=== PATIENT | female | born 1995 | race Caucasian/White ===

== ENCOUNTER 2017-02-08 15:13 | Emergency (ER) | payer OTHER ==
[~2017-02-08] VITALS: Ht 165.1 cm; Wt 98.0 kg
[~2017-02-08 15:13] MED LIST: KEFLEX500 MG PO; MACROBID 100 M100 MG PO
== END 2017-02-08 15:35 | disposition home or self-care (01) ==
LOC: ED 15:13
DX: Z00.8 Encounter for other general examination (principal)

== ENCOUNTER 2017-05-16 10:37 | Observation (INO) | payer OTHER ==
--- OUTSIDE RECORDS SUMMARY | ~2017-05-16 | XMS ---
Demographics + + + | Address | [address] | | | [place] [address] | + + + | Preferred Language | Unknown | + + + | Marital Status | Unknown | + + + | Mormonism Affiliation | Unknown | + + + | Race | Unknown | + + + | Ethnic Group | Unknown | + + + Author + + + | Author | [facility] | + + + | Organization | [facility] | + + + | Address | [address] | | | [place] [address] | + + + | Phone | Unavailable | + + + Care Team Providers + + + + | Care Unit Technician Name | Role | Phone | + + + + Unavailable | Unavailable | + + + + PROBLEMS +---------+ + + +--------+ + + | Type | Condition | ICD9-CM | [id number] | Onset | Condition | SNOMED | | | | Code | Code | Dates | Status | Code | +---------+ + + +--------+ + + | Problem | ANXIETY | 293.84 | | | Active | [id number] | | | DISORDER | | | | | | | | OTH DIS | | | | | | +---------+ + + +--------+ + + | Problem | Lice (of | 132.0 | | | Active | [id number] | | | head) | | | | | | | | infestatio | | | | | | | | n | | | | | | +---------+ + + +--------+ + + ALLERGIES Unknown Allergies SOCIAL HISTORY No smoking Hx information available PLAN OF CARE VITAL SIGNS MEDICATIONS Unknown Medications RESULTS No Results PROCEDURES No Known procedures IMMUNIZATIONS No Known Immunizations"
--- OUTSIDE RECORDS SUMMARY | ~2017-05-16 | XMS ---
Demographics + + + | Address | [address] | | | [place] [address] | + + + | Preferred Language | Unknown | + + + | Marital Status | Unknown | + + + | Lutheran Affiliation | Unknown | + + + | Race | Unknown | + + + | Ethnic Group | Unknown | + + + Author + + + | Author | [facility] | + + + | Organization | [facility] | + + + | Address | [address] | | | [place] [address] | + + + | Phone | | + + + Care Team Providers + + + + | Care Military Analyst Name | Role | Phone | + + + + Unavailable | Unavailable | + + + + PROBLEMS +---------+ + + +--------+ + + | Type | Condition | ICD9-CM | [id number] | Onset | Condition | SNOMED | | | | Code | Code | Dates | Status | Code | +---------+ + + +--------+ + + | Problem | ANXIETY | 293.84 | | | Active | [id number] | | | DISORDER | | | | | | | | OTH DIS | | | | | | +---------+ + + +--------+ + + | Problem | Lice (of | 132.0 | | | Active | [id number] | | | head) | | | | | | | | infestatio | | | | | | | | n | | | | | | +---------+ + + +--------+ + + ALLERGIES + + + + +---------+ | Substance | Reaction | Event Type | Date | Status | + + + + +---------+ | N.K.D.A. | Unknown | Non Drug | Jan, | Unknown | | | | Allergy | | | + + + + +---------+ SOCIAL HISTORY No smoking Hx information available PLAN OF CARE + +---------+ | Activity | Details | + +---------+ +---+ | | +---+ + + + | Follow Up | 1 Week Reason:null | + + + VITAL SIGNS + + + + | Height | 63.75 in | 2017-02-27 | + + + + | Weight | 245.6 lbs | 2017-02-27 | + + + + | BMI | 42.48 kg/m2 | 2017-02-27 | + + + + | Temperature | 98.5 degrees Fahrenheit | 2017-02-27 | + + + + | Heart Rate | 105 /min | 2017-02-27 | + + + + | Blood pressure systolic | 149 mm Hg | 2017-02-27 | + + + + | Blood pressure diastolic | 93 mm Hg | 2017-02-27 | + + + + MEDICATIONS + + + + +--------+ + +--------+ | Medicati | Instruct | Dosage | Frequenc | Start | End Date | Duration | Status | | on | ions | | y | Date | | | | + + + + +--------+ + +--------+ | Tylenol | Orally | 2 | 6h | | | | Active | | 325 MG | every 6 | tablets | | | | | | | | hrs | as | | | | | | | | | needed | | | | | | + + + + +--------+ + +--------+ RESULTS No Results PROCEDURES + + + + + | Procedure | Date Ordered | Related Diagnosis | Body Site | + + + + + | Est Level II | February 27, 2017 | | | | Limited | | | | + + + + + IMMUNIZATIONS No Known Immunizations"
--- OUTSIDE RECORDS SUMMARY | ~2017-05-16 | XMS ---
Demographics + + + | Address | [address] | | | [place] [address] | + + + | Preferred Language | Unknown | + + + | Marital Status | Unknown | + + + | Jainism Affiliation | Unknown | + + + | Race | Unknown | + + + | Ethnic Group | Unknown | + + + Author + + + | Author | [facility] | + + + | Organization | [facility] | + + + | Address | [address] | | | [place] [address] | + + + | Phone | | + + + Care Team Providers + + + + | Care Milking Machine Mechanic Name | Role | Phone | + + + + Unavailable | Unavailable | + + + + PROBLEMS +---------+ + + +--------+ + + | Type | Condition | ICD9-CM | [id number] | Onset | Condition | SNOMED | | | | Code | Code | Dates | Status | Code | +---------+ + + +--------+ + + | Problem | ANXIETY | 293.84 | | | Active | [id number] | | | DISORDER | | | | | | | | OTH DIS | | | | | | +---------+ + + +--------+ + + | Problem | Lice (of | 132.0 | | | Active | [id number] | | | head) | | | [...] N.K.D.A. | Unknown | Non Drug | Feb, | Unknown | | | | Allergy | | | + + + + +---------+ SOCIAL HISTORY No smoking Hx information available PLAN OF CARE + +---------+ | Activity | Details | + +---------+ +---+ | | +---+ + + + | Follow Up | prn Reason:null | + + + VITAL SIGNS + + + + | Height | 63.75 in | 2017-03-09 | + + + + | Weight | 244.9 lbs | 2017-03-09 | + + + + | BMI | 42.36 kg/m2 | 2017-03-09 | + + + + | Temperature | 97.8 degrees Fahrenheit | 2017-03-09 | + + + + | Heart Rate | 104 /min | 2017-03-09 | + + + + | Blood pressure systolic | 147 mm Hg | 2017-03-09 | + + + + | Blood pressure diastolic | 92 mm Hg | 2017-03-09 | + + + + MEDICATIONS No Known Medications RESULTS No Results PROCEDURES + + + + + | Procedure | Date Ordered | Related Diagnosis | Body Site | + + + + + | Est Level II | Mar 09, 2017 | | | | Limited | | | | + + + + + IMMUNIZATIONS No Known Immunizations"
== END 2017-05-16 15:40 | disposition home or self-care (01) ==
LOC: FBC 10:37
PROVIDERS: ADMIT Obstetrics & Gynecology
DX: O13.3 Gestational [pregnancy-induced] hypertension without significant proteinuria, third trimester (principal); Z3A.37 37 weeks gestation of pregnancy
CPT/HCPCS: 36415; 76818; 82565; 82570; 84156; 84450; 84520; 84550; 85025; G0378

== ENCOUNTER 2017-05-17 08:24 | Inpatient (IN) | payer OTHER ==
[~2017-05-17] VITALS: Ht 167.6 cm; Wt 115.0 kg
--- NOTE | 2017-05-19 10:07 | PR ---
[facility] [address] [place], [place] [address] Signed PP Progress Notes Datetime Report Generated by CPN: 05/19/2017 10:07 SUBJECTIVE: [id number] Pain: Within normal limits Nausea/Vomiting: Denies Flatus: Yes Vital Signs: [id number] Vital Signs: Reviewed EXAM: [id number] Cardiovascular: Normal Respiratory: Normal Abdomen/Uterus: Normal Lochia: Normal Vulva/Perineum: Normal Breasts: Normal CVA Tenderness: Normal Extremities: Normal Incision: Not Applicable Progress: Not Applicable IMPRESSION/PLAN/PROCEDURES: [id number] Impression: Normal progression Plan: Discharge Procedures: None Progress Notes: patient doing well. wanting to go home today Signing Physician: Alma Delia Espinoza MD CC: *Electronically Signed* 05/19/17 1007 ALMA DELIA ESPINOZA MD PATIENT NAME: TITI REEDER PROGRESS NOTE DATE OF : 97 PHYSICIAN: ALMA DELIA ESPINOZA MD RPT #: [id number] REPORT IS CONFIDENTIAL AND NOT TO BE RELEASED WITHOUT AUTHORIZATION
== END 2017-05-19 17:12 | disposition home or self-care (01) | DRG 774 ==
LOC: FBC 05-18 00:09
PROVIDERS: ADMIT Obstetrics & Gynecology
PROC: 10E0XZZ Delivery of Products of Conception, External Approach (ICD-10-PCS; principal; 2017-05-18)
PROC: 0KQM0ZZ Repair Perineum Muscle, Open Approach (ICD-10-PCS; 2017-05-18)
PROC: 3E0S3BZ Introduction of Anesthetic Agent into Epidural Space, Percutaneous Approach (ICD-10-PCS; 2017-05-18)
PROC: 00HU33Z Insertion of Infusion Device into Spinal Canal, Percutaneous Approach (ICD-10-PCS; 2017-05-18)
DX: O13.4 Gestational [pregnancy-induced] hypertension without significant proteinuria, complicating childbirth (principal); O15.1 Eclampsia complicating labor; Z3A.38 38 weeks gestation of pregnancy; Z37.0 Single live birth; O40.3XX0 Polyhydramnios, third trimester, not applicable or unspecified; O70.1 Second degree perineal laceration during delivery
CPT/HCPCS: 01960; 36415; 85027; J2590; J7120

== ENCOUNTER 2017-12-08 20:14 | Emergency (ER) | payer OTHER ==
[~2017-12-08] VITALS: Ht 167.6 cm; Wt 114.8 kg
[2017-12-08] MEDS ORDERED: NORCO 5-325 TA1 EACH PO (23:02)
[2017-12-08] MEDS ORDERED: ZOFRAN ODT4 MG PO (23:02)
== END 2017-12-08 23:24 | disposition home or self-care (01) ==
LOC: ED 20:14
DX: O99.89 Other specified diseases and conditions complicating pregnancy, childbirth and the puerperium (principal); R10.11 Right upper quadrant pain; R10.12 Left upper quadrant pain; R10.32 Left lower quadrant pain; O99.331 Smoking (tobacco) complicating pregnancy, first trimester; F17.200 Nicotine dependence, unspecified, uncomplicated; Z3A.01 Less than 8 weeks gestation of pregnancy
CPT/HCPCS: 76705; 76801; 76817; 80053; 81001; 83690; 84702; 84703; 85025; 85610; 85730; 96361; 96374; 96375; 99284; J1170; J2405; J7030

== ENCOUNTER 2018-03-16 03:53 | Emergency (ER) | payer OTHER ==
[~2018-03-16] VITALS: Ht 167.6 cm; Wt 114.8 kg
--- OUTSIDE RECORDS SUMMARY | ~2018-03-16 | XMS | Clinical Summary ---
Demographics + + + | Address | [address] | | | [place] [address] | + + + | Home Phone | | + + + | Preferred Language | Unknown | + + + | Marital Status | Single | + + + | Tenriism Affiliation | Unknown | + + + | Race | Unknown | + + + | Ethnic Group | Unknown | + + + Author + + + | Author | [facility] | | | and [place] | + + + | Organization | [facility] | | [...] Team Providers + +------+ + | Care Pulmonary Fellow Name | Role | Phone | + +------+ + | No, Physician | PP | Unavailable | + +------+ + Allergies No Known Allergies Current Medications No known medications Active Problems No known active problems Social History + +-------+ +--------+------+ | Tobacco Use | Types | Packs/Day | Years | Date | | | | | Used | | + +-------+ +--------+------+ | Never Assessed | | | | | + +-------+ +--------+------+ + + + + | Currently | Estimated Date of Delivery | Comments | + + + + | Yes | | | + + + + + + + | Sex Assigned at | Date Recorded | | | | + + + | Not on file | | + + + Last Filed Vital Signs + + + + | Vital Sign | Reading | Time Taken | + + + + | Blood Pressure | 124/73 | 12/11/2017 1236 PDT | + + + + | Pulse | 86 | 12/11/2017 1236 PDT | + + + + | Temperature | 37.4 C (99.3 F) | 12/11/20171137 PDT | + + + + | Respiratory Rate | 12 | 12/11/20171235 PDT | + + + + | Oxygen Saturation | 96% | 12/11/20171235 PDT | + + + + | Inhaled Oxygen | - | - | | Concentration | | | + + + + | Weight | 81.6 kg (180 lb) | 12/11/20171137 PDT | + + + + | Height | 162.6 cm (5' 4") | 12/11/20171137 PDT | + + + + | Body Mass Index | 30.9 | 12/11/2017 1138 PDT | + + + + Plan [...] Vaccine: Influenza | | | | | (#1) | 8 | | | + + + + + Results Not on filefrom Last 3 Months Insurance + +--------+ +--------+ +---------+ | Payer | Benefi | Subscriber | Type | Phone | Address | | | t Plan | ID | | | | | | / | | | | | | | Group | | | | | + +--------+ +--------+ +---------+ | [facility] | PHP | [id number] | PPO | [phone] | | PLAN | [place]BB | | | [phone] | | | | [place]W | | | | | | | [place] | | | | | + +--------+ +--------+ +---------+ | [employer] | MODA | [id number] | Medica | [phone] | | MEDICAID HMO | HEALTH | | id | [id number] | | | | MDCD | | | | | | | HMO [place] | | | | | + +--------+ +--------+ +---------+ + +--------+ +--------+ + + | Guarantor Name | Accoun | Relation to | Date | Phone | Billing Address | | | t Type | Patient | of | | | | | | | | | | + +--------+ +--------+ + + | TITI HINES | Person | Self [birth year] Home: | [address] | | | al/Fam | | 1994 | [phone] [place] [address] | | | tobi | | | [phone] | | + +--------+ +--------+ + +
[~2018-03-16 03:53] MED LIST changes: +NORCO 5-325 TA1 EACH PO; +ZOFRAN ODT4 MG PO
== END 2018-03-16 05:45 | disposition home or self-care (01) ==
LOC: ED 03:53
DX: O99.89 Other specified diseases and conditions complicating pregnancy, childbirth and the puerperium (principal); R10.10 Upper abdominal pain, unspecified; F17.200 Nicotine dependence, unspecified, uncomplicated; Z3A.20 20 weeks gestation of pregnancy
CPT/HCPCS: 80053; 81001; 84703; 85025; 96374; 96375; 99284; J2270; J2405

== ENCOUNTER 2018-08-06 14:38 | Inpatient (IN) | payer OTHER ==
[~2018-08-06] VITALS: Ht 162.6 cm; Wt 110.0 kg
--- NOTE | 2018-08-07 01:25 | PR ---
[facility] [address] [place], [place] [address] Signed Progress Notes IP Datetime Report Generated by CPN: 08/07/2018 01:25 PROGRESS NOTES: [id number] Impression: Normal progression of labor Procedures: Artificial ROM; Scalp Electrode Plan: Continue present management; Anticipate Vaginal Delivery VITAL SIGNS: [id number] Vital Signs: Reviewed; Within Normal Limits EXAM: [id number] Dilatation: 4.0 Effacement: 70 Station: -3 Uterine Contractions: every 2-3 minutes MEMBRANES: [id number] Membrane Status: Ruptured Amniotic Fluid Color: Clear ROM Note: AROM without difficulty; head applied to cervix, FEKG applied Comments: Comfortable with Epidural, will continue monitoring Fetus A: [id number] FHR Baseline: 120 Variability: Moderate 6-25bpm Accelerations: 15X15 Presentation: Vertex Fetus B: [id number] Signing Physician: Yari Olguin MD Copies: ~ *Electronically Signed* 08/07/18 0125 YARI OLGUIN MD PATIENT NAME: TITI REEDER PROGRESS NOTE DATE OF : 97 PHYSICIAN: YARI OLGUIN MD RPT #: [id number] REPORT IS CONFIDENTIAL AND NOT TO BE RELEASED WITHOUT AUTHORIZATION
--- NOTE | 2018-08-07 12:58 | PR ---
[facility] [address] [place], [place] [address] Signed PP Progress Notes Datetime Report Generated by CPN: 08/07/2018 12:58 SUBJECTIVE: [id number] Pain: Within normal limits Nausea/Vomiting: Denies Vital Signs: [id number] Vital Signs: Reviewed; Within Normal Limits EXAM: [id number] Abdomen/Uterus: Normal Lochia: Normal Extremities: Normal IMPRESSION/PLAN/PROCEDURES: [id number] Impression: Normal progression Plan: Continue present management Procedures: None Progress Notes: Doing well, without complaint. Continue Pitocin augmentation. Signing Physician: Yari Olguin MD Copies: ~ *Electronically Signed* 08/07/18 1258 YARI OLGUIN MD PATIENT NAME: TITI REEDER PROGRESS NOTE DATE OF : 97 PHYSICIAN: YARI OLGUIN MD RPT #: [id number] REPORT IS CONFIDENTIAL AND NOT TO BE RELEASED WITHOUT AUTHORIZATION
--- NOTE | 2018-08-08 12:09 | PR ---
[facility] [address] [facility] [facility] [address] [place] [address] Signed PP Progress Notes Datetime Report Generated by CPN: 08/08/2018 12:09 SUBJECTIVE: [id number] Pain: Within normal limits Nausea/Vomiting: Denies Vital Signs: [id number] Vital Signs: Reviewed; Within Normal Limits Notable Details: PP Hgb/Hct = 10.4/32.5 EXAM: [id number] Abdomen/Uterus: Normal Lochia: Normal Extremities: Normal IMPRESSION/PLAN/PROCEDURES: [id number] Impression: Normal progression Plan: Discharge Procedures: None Progress Notes: Doing well, without complaitn, wants to go home. Signing Physician: Yari Olguin MD Copies: ~ *Electronically Signed* 08/08/18 1209 YARI OLGUIN MD PATIENT NAME: TITI REEDER PROGRESS NOTE DATE OF : 97 PHYSICIAN: YARI OLGUIN MD RPT #: [id number] REPORT IS CONFIDENTIAL AND NOT TO BE RELEASED WITHOUT AUTHORIZATION
== END 2018-08-08 13:35 | disposition home or self-care (01) | DRG 807 ==
LOC: FBC
PROVIDERS: ADMIT General Practice
PROC: 3E0S3BZ Introduction of Anesthetic Agent into Epidural Space, Percutaneous Approach (ICD-10-PCS; 2018-08-06)
PROC: 00HU33Z Insertion of Infusion Device into Spinal Canal, Percutaneous Approach (ICD-10-PCS; 2018-08-06)
PROC: 10E0XZZ Delivery of Products of Conception, External Approach (ICD-10-PCS; principal; 2018-08-07)
PROC: 0HQ9XZZ Repair Perineum Skin, External Approach (ICD-10-PCS; 2018-08-07)
PROC: 10907ZC Drainage of Amniotic Fluid, Therapeutic from Products of Conception, Via Natural or Artificial Opening (ICD-10-PCS; 2018-08-07)
DX: O66.0 Obstructed labor due to shoulder dystocia (principal); Z37.0 Single live birth; O69.1XX0 Labor and delivery complicated by cord around neck, with compression, not applicable or unspecified; O70.0 First degree perineal laceration during delivery; Z3A.40 40 weeks gestation of pregnancy
CPT/HCPCS: 01960; 36415; 82565; 82570; 84156; 84450; 84520; 84550; 85025; 85027; J2590; J2795; J7120

== ENCOUNTER 2018-11-10 15:27 | Emergency (ER) | payer OTHER ==
[~2018-11-10] VITALS: Ht 162.6 cm; Wt 110.4 kg
--- OUTSIDE RECORDS SUMMARY | ~2018-11-10 | XMS | Clinical Summary ---
Demographics + + + | Address | [address] | | | [place] [address] | + + + | Home Phone | | + + + | Preferred Language | Unknown | + + + | Marital Status | Single | + + + | Alevism Affiliation | Unknown | + + + | Race | Unknown | + + + | Ethnic Group | Unknown | + + + Author + + + | Author | [facility] | | | and [place] | + + + | Organization | [facility] | | | and [place] [...] Team Providers + +------+ + | Care Pharmacist In Charge Owner Name | Role | Phone | + [...] +---------+--------+ | [facility] | PHP | [phone] | 07/31/19 | [phone] | | PPO | | PLAN | PEBB | | 18-Pre | 5 | | | | | STATEW | | sent | | | | | | [place]EDEE | | | | | | + +--------+ +--------+ +---------+--------+ | [employer] | MODA | [id number] | | [phone] | | Medica | | MEDICAID HMO [...] | 1995 | [phone] | [place] [address] | | | tobi | | | 8 (Home) | | + +--------+ +--------+ + + Advance Directives Patient has advance care planning documents on file. For more information, please contact:[facility] [place] [address]
--- OUTSIDE RECORDS SUMMARY | ~2018-11-10 | XMS | Clinical Summary ---
Demographics + + + | Address | [address] | | | [place] [address] | + + + | Home Phone | | + + + | Preferred Language | Unknown | + + + | Marital Status | Single | + + + | Nondenominational Affiliation | Unknown | + + + | Race | Unknown | + + + | Ethnic Group | Unknown | + + + Author + + + | Author | [facility] | | | and [place] | + + + | Organization | [facility] | | | and [place] [...] Team Providers + +------+ + | Care Laborer Laboratory Name | Role | Phone | + [...] +---------+--------+ | [facility] | PHP | [phone] | 07/31/19 | [phone] | | PPO | | PLAN | PEBB | | 18-Pre | 5 | | | | | STATEW | | sent | | | | | | DEEDEE | | | | | | + +--------+ +--------+ +---------+--------+ | [employer] | MODA | [id number] | | [phone] | | Medica | | MEDICAID HMO [...] | 1995 | [phone] | [place] [address] | | | tobi | | | 8 (Home) | | + +--------+ +--------+ + + Advance Directives Patient has advance care planning documents on file. For more information, please contact:[facility] and [place] [address]
[2018-11-10] MEDS ORDERED: ZOFRAN4 MG PO (17:42)
[2018-11-10] MEDS ORDERED: NORCO 5-325 TA1 EACH PO (17:42)
== END 2018-11-10 18:05 | disposition home or self-care (01) ==
LOC: ED 15:27
DX: K85.90 Acute pancreatitis without necrosis or infection, unspecified (principal); F17.200 Nicotine dependence, unspecified, uncomplicated
CPT/HCPCS: 76705; 80053; 81001; 83690; 84703; 85025; 96361; 99284-25; J1885; J2405; J7030

== ENCOUNTER 2018-12-01 21:28 | Observation (INO) | payer OTHER ==
[~2018-12-01] VITALS: Ht 162.6 cm; Wt 109.3 kg
--- OUTSIDE RECORDS SUMMARY | ~2018-12-01 | XMS | Clinical Summary ---
Demographics + + + | Address | [address] | | | [place] [address] | + + + | Home Phone | | + + + | Preferred Language | Unknown | + + + | Marital Status | Single | + + + | Denominational Affiliation | Unknown | + + + | Race | Unknown | + + + | Ethnic Group | Unknown | + + + Author + + + | Author | [facility] | | | and [place] | + + + | Organization | [facility] | | | and [place] | + + + | Address | Unknown | + + + | Phone | Unavailable | + + + Support + + +---------+ + | Name | Relationship | Address | Phone | + + +---------+ + | None,Per Pt | ECON | Unknown | | + + +---------+ + Care Team Providers + +------+ + | Care Serology Teacher Name | Role | Phone | + +------+ + | No, Physician | PP | Unavailable | + +------+ + Allergies No Known Allergies Medications No known medications Active Problems + + + | | Comments | + + + | Yes | | + + + No known active problems Social History + +-------+ +--------+------+ | Tobacco Use | Types | Packs/Day | Years | Date | | | | | Used | | + +-------+ +--------+------+ | Never Assessed | | | | | + +-------+ +--------+------+ + + + | | Comments | + + + | Yes | | + + + + + + | Sex Assigned at [...] recent travel history available. | + + Last Filed Vital Signs + + + + | Vital Sign | Reading | Time Taken | + + + + | Blood Pressure | 124/73 | 12/11/20176 PDT | + + + + | Pulse | 86 | 12/11/20171235 PDT | + + + + | Temperature | 37.4 C (99.3 F) | 12/11/20178 PDT | + + + + | Respiratory Rate | 12 | 12/11/20171235 PDT | + + + + | Oxygen Saturation | 96% | 12/11/2017 1236 PDT | + + + + | Inhaled Oxygen | - | - | | Concentration | | | + + + + | Weight | 81.6 kg (180 lb) | 12/11/20171137 PDT | + + + + | Height | 162.6 cm (5' 4") | 12/11/20171137 PDT | + + + + | Body Mass Index | 30.9 | 12/11/20171137 PDT | + + + + Plan of Treatment + + + + + | Health Maintenance | Due Date | Last Done | Comments | + + + + + | Well Child Check | | | | | | 0 | | | + + + + + | Vaccine: | | | | | Dtap/Tdap/Td (1 - | 6 | | | | Tdap) | | | | + + + + + | Cervical Cancer | | | | | Screening (Pap) | 8 | | | + + + + + | Vaccine: Influenza | | | | | (Season Ended) | 9 | | | + + + + + Results Not on filefrom Last 3 Months Insurance + +--------+ +--------+ +---------+--------+ | Payer | Benefi | Subscriber | Effect | Phone | Address | Type | | | t Plan | ID | lalita | | | | | | / | | Dates | | | | | | Group | | | | | | + +--------+ +--------+ +---------+--------+ | [facility] | PHP | [id number] | 07/31/19 | [phone] | | PPO | | PLAN | [place]BB | | 18-Pre | 5 | | | | | STATEW | | sent | | | | | | [place] | | | | | | + +--------+ +--------+ +---------+--------+ | [employer] | MODA | [id number] | | [phone] | | Medica | | MEDICAID HMO | HEALTH | | 018-Pr | 1 | | id | | | MDCD | | esent | | | | | | HMO [place] | | | | | | + +--------+ +--------+ +---------+--------+ + +--------+ +--------+ + + | Guarantor Name | Accoun | Relation to | Date | Phone | Billing Address | | | t Type | Patient | of | | | | | | | | | | + +--------+ +--------+ + + | Fritz Hines | Person | Self [birth year] | [address] | | | al/Vipul | | 1995 | [phone] | [place] [address] | | | tobi | | | 8 (Home) | | + +--------+ +--------+ + + Advance Directives Patient has advance care planning documents on file. For more information, please contact:[facility] [place] [address]
--- OUTSIDE RECORDS SUMMARY | ~2018-12-01 | XMS | Clinical Summary ---
Demographics + + + | Address | [address] | | | [place] [address] | + + + | Home Phone | | + + + | Preferred Language | Unknown | + + + | Marital Status | Single | + + + | Tenriism Affiliation | Unknown | + + + | Race | Unknown | + + + | Ethnic Group | Unknown | + + + Author + + + | Author | [facility] | | | and [place] | + + + | Organization | [facility] | | | and [place] [...] Team Providers + +------+ + | Care Senior Research Engineer Name | Role | Phone | + [...] +---------+--------+ | [facility] | PHP | [id number] | 07/31/19 | [phone] | | PPO | | PLAN | PEBB | | 18-Pre | 5 | | | | | STATEW | | sent | | | | | | DEEDEE | | | | | | + +--------+ +--------+ +---------+--------+ | [employer] | MODA | [id number] | | [phone] | | Medica | | MEDICAID HMO [...] | 1995 | [phone] | [place] [address] | | | tobi | | | 8 (Home) | | + +--------+ +--------+ + + Advance Directives Patient has advance care planning documents on file. For more information, please contact:[facility] [place] [address]
--- OUTSIDE RECORDS SUMMARY | ~2018-12-01 | XMS | Clinical Summary ---
Demographics + + + | Address | [address] | | | [place] [address] | + + + | Home Phone | | + + + | Preferred Language | Unknown | + + + | Marital Status | Single | + + + | Taoist Affiliation | Unknown | + + + | Race | Unknown | + + + | Ethnic Group | Unknown | + + + Author + + + | Author | [facility] | | | and [place] | + + + | Organization | [facility] | | | and [place] [...] Team Providers + +------+ + | Care Radio Interference Supervisor Name | Role | Phone | + [...] +---------+--------+ | [facility] | PHP | [phone] | 07/31/19 | [phone] | | PPO | | PLAN | PEBB | | 18-Pre | 5 | | | | | STATEW | | sent | | | | | | DEEDEE | | | | | | + +--------+ +--------+ +---------+--------+ | [employer] | MODA | [id number] | | [phone] | | Medica | | MEDICAID HMO [...] | 1995 | [phone] | [place] [address] | | | tobi | | | 8 (Home) | | + +--------+ +--------+ + + Advance Directives Patient has advance care planning documents on file. For more information, please contact:[facility] [place] [address]
[~2018-12-01 21:28] MED LIST changes: +ZOFRAN4 MG PO
--- OUTSIDE RECORDS SUMMARY | 2018-12-01 21:32 | XMS ---
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 Details: Security called police- patient left driving own vehicle after setting IV pain medication. CRITERIA MET - [facility] - 2 Visits in 30 Days [facility] PROVID[facility] PHONE: [phone] Eric has no Care Guidelines for this patient. Janessa VISIT COUNT (12 MO.) 1 [facility] [address] [place] [address] TOTAL 5 NOTE: Visits indicate total known visits. ED/UCC VISIT TRACKING (12 MO.) 12/01/2018 21:29 [facility] TYPE: Emergency COMPLAINT: - DIFFICULTY BREATHING 11/10/2018 15:28 [facility] TYPE: Emergency COMPLAINT: - ABD PAIN DIAGNOSES: - Right upper quadrant pain - Acute pancreatitis without necrosis or infection, unspecified - Nicotine dependence, unspecified, uncomplicated 03/16/2018 03:54 [facility] [place] TYPE: Emergency COMPLAINT: - VOMITING/ABD AND FLANK PAIN DIAGNOSES: - Nicotine dependence, unspecified, uncomplicated - 20 weeks gestation of - Upper abdominal pain, unspecified - Other specified diseases and conditions complicating , childbirth and the puerperium 12/11/2017 11:34 [facility] TYPE: Emergency DIAGNOSES: - Encounter for supervision of normal , unspecified, unspecified trimester - Unspecified abdominal pain - Pelvic Pain 12[facility]08/2017 20:[facility] COMPLAINT: - SHORT OF BREATH DIAGNOSES: - Smoking (tobacco) complicating , first trimester - Left lower quadrant pain - Nicotine dependence, unspecified, uncomplicated - Less than 8 weeks gestation of - Left upper quadrant pain - Right upper quadrant pain - Other specified diseases and conditions complicating , childbirth and the puerperium INPATIENT VISIT TRACKING (12 MO.) 08/06/2018 14:[address] [facility] [place] TYPE: [facility] COMPLAINT: - LABOR DIAGNOSES: - First degree perineal laceration during delivery - 40 weeks gestation of - 40 weeks gestation of - Obstructed labor due to shoulder dystocia - Labor and delivery complicated by cord around neck, with compression, not applicable or unspecified - First degree perineal laceration during delivery - Single live - Single live - Labor and delivery complicated by cord around neck, with compression, not applicable or unspecified [email or web address]
--- NOTE | 2018-12-02 00:30 | NUR ---
RECEIVED TELEPHONE REPORT. QUESTIONS ANSWERED. AWAITING PT'S ARRIVAL.
--- NOTE | 2018-12-02 01:00 | NUR ---
PATIENT ARRIVED TO THE UNIT VIA STRETCHER AND TRANSFERED INDEPENDENTLY TO THE BED. PATIENT DENIES PAIN AT THIS TIME. AAOX4. VS STABLE. IV FLUSHED AND IV FLUIDS STARTED PER ORDER. ORIENTED PATIENT TO THE ROOM AND POC. ALL QUESTIONS ANSWERED. SIGINFICANT OTHER AND CHILD WITH PATIENT, THEY RETURNED HOME TO RECIEVE SUPPLIES. DISCUSSED NEED FOR FATHER TO KEEP RESPONSIBILITY OF CHILD WHILE MOTHER IS ADMITTED. THEY VERBALIZED UNDERSTANDING. PATIENT ADMISSION COMPLETE. NO NEEDS AT THIS TIME. CALL LIGHT IN REACH.
--- NOTE | 2018-12-02 01:05 | NUR ---
ASSESSMENT COMPLETE. PT A/OX4, DENIES PAIN. DROWSY, BUT AWAKENS EASILY. VSS, PT ON RA, LUNGS CLEAR, PT DENIES DYSNEA AND SOB. IV FLUIDS INFUSING PER MD ORDERS, IV SITE WNL. PT RESTING IN BED, DENIES ADDITIONAL NEEDS. CALL LIGHT IN REACH.
--- NOTE | 2018-12-02 02:49 | NUR ---
PT RESTING IN BED, EYES CLOSED. RR WNL. PT APPEARS COMFORTABLE. FAMILY IN ROOM. IV FLUIDS INFUSING PER MD ORDERS, SITE WNL. CALL LIGHT IN REACH.
--- NOTE | 2018-12-02 03:45 | NUR ---
pt reports 10/10 pain in abdomen. 0.5 mg prn dilaudid administered. pt denies further needs, call light in reach.
--- NOTE | 2018-12-02 04:20 | NUR ---
PT ARRIVED TO THE UNIT FROM THE ED. VSS, PT ON RA. PAIN CONTROLLED WITH IV DILAUDID. LR AT 100 MLS/HR, IV SITE WNL. PT NPO, BOWEL TONES HYPOACTIVE. PT DENIES NAUSEA. USES CALL LIGHT APPROPERAITELY.
--- NOTE | 2018-12-02 06:10 | NUR ---
SCHEDULED IV ANCEF INFUSING, IV SITE WNL. VSS. PT UP SBA WITH GAME ENGINEER COURNEY TO VOID.
--- NOTE | 2018-12-02 09:21 | NUR ---
PT SLEEPING UPON ENTERING ROOM. AWOKE EASILY TO VOICE ALTHOUGH REMAINS DROWSY. REPORTING 9/10 ABD PAIN. FALLS ASLEEP EASILY. MEDICATED WITH 0.5MG IV DILAUDID. DENIES NAUSEA. PT SBA TO RESTROOM, VOIDED WITHOUT DIFFICULTY. AMB BACK TO BED. PT SO AND INFANT CHILD AT BEDSIDE. SCD'S ON. CALL LIGHT WITHIN REACH.
--- NOTE | 2018-12-02 12:04 | NUR ---
PT RESTING QUIETLY IN BED, EYES CLOSED, RESP EVEN AND UNLABORED. BOYFRIEND AT BEDSIDE.
--- NOTE | 2018-12-02 13:09 | NUR ---
PT UP TO BATHROOM WITH ASSISTANCE IN UNPLUGGING IV PUMP. PT STEADY ON FEET. ALERT, ORIENTED X 3. C/O INCREASED ABDOMINAL PAIN. CALLED DR. TA TO REQUEST PRN PAIN MEDICATION ORDER. DR. TA STATED THAT HE WOULD BE IN TO SEE PT SOON.
--- NOTE | 2018-12-02 13:47 | NUR ---
ASKED DR. TA FOR AN ORDER FOR PAIN MEDICATION, PT C/O ABDOMINAL PAIN. RECIEVED VORB FOR MORPHINE 2 MG IV ONCE.
--- NOTE | 2018-12-02 16:04 | NUR ---
12/02/18 1604 Alexsandra Gomez 1553: PT ARRIVES TO PACU WITH AIRWAY SUPPORT. PT IS MINIMALLY REPSONSIVE WITH STERNAL RUBS AND VERBAL STIMULATION. DELI MANAGER REMAINS AT BEDSIDE. PT IS ENCOURAGED TO TAKE DEEP BREATHS.
--- NOTE | 2018-12-02 16:57 | NUR ---
PT RETURNED TO FLOOR VIA STRETCHER ACCOMPANIED BY ARIANE ANTONIO. TO ROOM 113 AT 1645. PT MOVED SELF FROM STRETCHER TO BED BY SCOOTING SELF OVER. DENIED PAIN. OXYGEN SATURATION LEVEL 87-88% ON RA, PLACED PT ON 1L O2 VIA NC, SAT 93%. 4 SCOPE SITES TO ABDOMEN PRESENT, UMBILICAL SITE HAS LARGE BANDAIDE WITH MODERATE AMOUNT SEROUS DRAINAGE, OTHER 3 SITES HAVE SMALL AMOUNT SEROUS DRAINAGE.
--- NOTE | 2018-12-02 17:35 | NUR ---
PT HAD SURGERY THIS AFTERNOON, RETURNED TO FLOOR FROM RECOVERY AT 1645. WAS ON 1L O2 FOR SAT LEVEL OF 87-88% ON RA, BUT NOW TITRATED TO RA, SAT 90% OR GREATER. PT ON CONTINUOUS PULSE OX. HAS LR INFUSING AT 85 ML/HR. DROWSY, RATED PAIN 8/10, PT RECIEVED TORADOL 30 MG IV PRN. PT EATING CRACKERS AND JELLO, DRINKING ICE WATER, TOLERATING WELL THUS FAR. PT HAS 4 SCOPE SITES, 2 TO RUQ, 1 TO EPIGASTRIC AREA, AND 1 TO UMBILICAL AREA. UMBILICAL AREA SITE HAS HAD MODERATE SEROUS DRAINAGE TO LARGE BANDAIDE, SMALL TO MODERATE AMOUNT OF SEROUS DRAINAGE PRESENT TO STERI STIPS OF 3 OTHER SITES. PT UP TO BATHROOM WITH 1 PERSON ASSIST, SLIGHTLY UNSTEADY ON FEET, VOIDED CLEAR YELLOW URINE, THEN BACK TO BED. SIGNIFICANT OTHER AT BEDSIDE.
--- NOTE | 2018-12-02 17:57 | NUR ---
PT REMAINS DROWSY BUT IS MORE ALERT AND ORIENTED THAN LAST ASSESSMENT. PT TITRATED FROM 1L O2 TO RA, SAT 93-95% ON RA. PT C/O RIGHT SIDED ABDOMINAL PAIN, 8/10. SCOPE SITES HAVE MODERATE AMOUNT OF SEROUS DRAINAGE PRESENT, UMBILICAL SITE BANDAIDE HAS MODERATE TO LARGE AMOUNT OF SEROUS DRAINAGE TO DRESSING. NO SEEPING FROM DRESSING NOTED.
--- NOTE | 2018-12-02 18:57 | NUR ---
PT ALERT, RATES ABDOMINAL PAIN 02/06. TOLERATED JELLO AND SEVERAL CRACKERS. VSS. REMAINS ON RA, SAT 95%.
--- NOTE | 2018-12-02 19:07 | NUR ---
IN ROOM FOR REPORT, PT IS AWAKE IN BED WITH SIGNIFICANT OTHER IN THE ROOM. SHE DENIES NEEDS AT THIS TIME. CALL LIGHT IS WITHIN REACH.
--- NOTE | 2018-12-02 20:23 | NUR ---
IN ROOM TO ASSESS PT, ALSO ASSISTED HER TO THE RESTROOM AND BACK TO BED SBA. SHE REPORTS PAIN 9/10 2ND NORCO ADMINISTERED. PT IS SHALLOW BREATHING, DISCUSSED THE IMPORTANCE OF PAIN CONTROL AND COUGHING/DEEP BREATHING. PT DENIES FURTHER NEEDS AT THIS TIME CALL LIGHT IS CLOSE.
--- NOTE | 2018-12-02 20:34 | NUR ---
ROUNDED CHARGE. PATIENT IS RESTING IN BED. PATIENTS S/O AND BABY ARE AT THE BEDSIDE. PATIENT DENIES ANY COMMNENTS, QUESTIONS, OR CONCERNS. NO NEEDS NOTED. CALL LIGHT IN REACH. NO PAIN OR NAUSEA NOTED.
--- NOTE | 2018-12-02 21:02 | NUR ---
Patients VS and I&Os were complete. ARIANE Tellez charted them for me, patient did not need anything at this time.
--- NOTE | 2018-12-02 22:10 | NUR ---
IN ROOM TO ADMINISTER IV ABX, PT AWOKE BUT IS NOW RESTING WITH EYES CLOSED, RR IS EVEN AND NONLABORED. BOYFRIEND IS IN THE ROOM AT THIS TIME. CALL LIGHT IS WITHIN REACH.
--- NOTE | 2018-12-03 00:32 | NUR ---
PT IS RESTING WITH EYES CLOSED, RESPIRATIONS ARE EVEN AND NONLABORED. CALL LIGHT IS WITHIN REACH.
--- NOTE | 2018-12-03 02:54 | NUR ---
PT IS RESTING WITH EYES CLOSED, RR IS EVEN AND NONLABORED. CALL LIGHT IS CLOSE.
--- NOTE | 2018-12-03 04:53 | NUR ---
PT IS RESTING WITH EYES CLOSED, RESPIRATIONS ARE EVEN AND NONLABORED. CALL LIGHT IS WITHIN REACH.
--- NOTE | 2018-12-03 05:55 | NUR ---
ASSISTED PT TO THE RESTROOM AND BACK TO BED. ADMINISTERED PAIN MEDS WELL. NO NEW DRAINAGE NOTED. PT DENIES FURTHER NEEDS. CALL LIGHT IS WITHIN REACH.
--- NOTE | 2018-12-03 06:49 | NUR ---
PT SLEPT MOST OF THE NIGHT. HER PAIN WAS NOT WELL CONTROLLED WITH 1 NORCO AND REQUIRED 2 AT A TIME. PT'S PAIN IS WELL CONTROLLED WHEN SHE IS IN BED, BUT SHE REPORTS PAIN AT 10/10 WHEN SHE IS UP TO USE THE RESTROOM. SHE RECEIVED MOTRIN THIS AM TO ASSIST WITH PAIN CONTROL. SHE HAS LR INFUSING AT 85MLS/HR AND URINE OUTPUT IS QS. SHE REMAINED ABOVE 94% ON CPOX THROUGH THE NIGHT ON RA. DRAINAGE FROM HER LAP SITES HAS DECREASED SINCE START OF NIGHT. SHE IS TOLERATING A REGULAR DIET.
--- NOTE | 2018-12-03 07:30 | NUR ---
PT RONN ULLOA INDEPENDENLTY WITH MOTHER. DEJA WELL.
--- NOTE | 2018-12-03 08:44 | NUR ---
PT AWAKE IN BED WATCHING TV. RATING ABD PAIN 9/10. PT SMILING AND HAVING ACTIVE CONVERSATION WITH THIS RN. MEDICATED WITH IV TORADOL. REPORTS MILD NAUSEA, MEDICATED WITH IV ZOFRAN. ALERT AND ORIENTED. INDEPENDENT IN ROOM. CALL LIGHT WITHIN REACH.
--- NOTE | 2018-12-03 09:20 | OR ---
[facility] [address] [facility] [place] [place] [address] Signed DATE OF OPERATION: 12/02/2018 SURGEON: Bentley Ta MD DATE OF PROCEDURE: 12/01/2018 PREOPERATIVE DIAGNOSES: 1. Acute calculous cholecystitis. 2. Resolved pancreatitis (one month ago). 3. Obesity. 4. state x3 months. POSTOPERATIVE DIAGNOSES: 1. Acute calculous cholecystitis. 2. Resolved pancreatitis (one month ago). 3. Obesity. 4. state x3 months. PROCEDURES PERFORMED: 1. Laparoscopic cholecystectomy with intraoperative cholangiogram. 2. Surgeon-directed fluoroscopy. ANESTHESIA: General endotracheal; Yanique Mace CRNA and local 20 mL of 0.25% Marcaine with epinephrine. INDICATION: This 23-year-old white woman is a patient admitted late last night through the emergency room after being evaluated by Dr. Alena Guzman with right upper abdominal pain. About a month ago, she presented to the emergency room and found to have pancreatitis. An ultrasound at that time showed no sign of gallstones. Pancreatitis resolve within two days upon discharge home from the ER. She presented late last night with recurrent pain, was found to have no evidence of pancreatitis, but a CT scan was performed, which showed the pancreas normal, but at least one large gallstone in the gallbladder and some smaller stones as well. She has been fluid resuscitated, given intravenous antibiotics, parenteral pain medication and so forth and is now ready to undergo cholecystectomy, preferred by laparoscopic approach. The risks of bleeding, infection, bile duct injury, and other unforeseen Electronically Signed By: BENTLEY TA MD 12/03/18 0920 PATIENT NAME: TITI REEDER OPERATIVE REPORT DATE OF : [birth year] REPORT #: [id number] PHYSICIAN: BENTLEY TA MD PCP: NO PRIMARY CARE PHYSICIAN REPORT IS CONFIDENTIAL AND NOT TO BE RELEASED WITHOUT AUTHORIZATION [facility] [address] [place], [place] [address] Signed complications were reviewed in detail. She understands and wished to proceed. FINDINGS: Indeed the gallbladder was acutely inflamed. The liver appeared normal. There was no saponification in the retroperitoneum or anything of that sort related to distant pancreatitis. The gallbladder once excised showed extreme cholesterolosis of the mucosa as well as a single large gallstone about 1.5 cm in size. Cholangiogram was normal. There were no other findings of concern. DESCRIPTION OF PROCEDURE: The patient was brought to the operating room, given general endotracheal anesthetic. Preoperative antibiotic Ancef was given. Sequential compression device stockings used and heparin subcutaneously administered. After satisfactory general endotracheal anesthesia, the abdomen is prepared with a chlorhexidine solution and draped sterilely. An infraumbilical incision was made and using an open Kaelyn cannula technique, pneumoperitoneum achieved to a level of 14 mmHg of carbon dioxide gas. Intraabdominal inspection showed no sign of ascites or carcinomatosis. The gallbladder was not visualized initially. Three additional trocars were placed in usual configuration in the subxiphoid right midclavicular, and right anterior axillary line. The gallbladder was elevated cephalad and found to be acutely inflamed with a pink thick appearance. The liver was normal. The gallbladder was retracted cephalad, more fully and retracted laterally and using blunt and electrocautery dissection the triangle of Calot was dissected free. Cystic arterial branch was doubly clipped and divided after being fully identified. A clip was applied across gallbladder cystic duct junction and a transverse choledochotomy made in the cystic duct. Retrograde milking of the cystic duct showed egress of clear bile. Using the Woodward type cholangiocatheter, intraoperative cholangiography was undertaken showing free flow of contrast in the biliary tree with prompt emptying into the duodenum. There was no sign of filling defect or other problem. The cystic duct was relatively long. The catheter was removed. The cystic duct was triply clipped and divided and the gallbladder dissected free in a retrograde fashion using electrocautery. The gallbladder was placed in an endobag and extracted through the infraumbilical port site without problem, opened on the back table and found to have profound cholesterolosis as well as a single gallstone 1.5 cm in size, as well as bits of stone debris as well. The dominant gallstone was rounded. Irrigation was taken in sub hepatic space. Electrocautery was used to assure hemostasis. Some Natalya was applied to the raw surface of the underside of the gallbladder. The excess irrigation fluid suctioned free. The trocars were removed under direct visualization showing no sign of bleeding. The infraumbilical fascial incision was reapproximated with interrupted 0 Vicryl suture. All wounds were copiously irrigated Electronically Signed By: BENTLEY TA MD 12/03/18 0920 PATIENT NAME: TITI REEDER OPERATIVE REPORT DATE OF : [birth year] REPORT #: [id number] PHYSICIAN: BENTLEY TA MD PCP: NO PRIMARY CARE PHYSICIAN REPORT IS CONFIDENTIAL AND NOT TO BE RELEASED WITHOUT AUTHORIZATION [address] [address] Signed with saline solution. Skin closed with interrupted 3-0 Vicryl. Steri-Strips were applied. The patient tolerated the procedure well. BLOOD LOSS: Minimal. COMPLICATIONS: None. MD SANKET Gordillo/JERMAINL /[id number] cc: Dr. Alena Anderson DO Copies: ~ Electronically Signed By: BENTLEY TA MD 12/03/18 0920 PATIENT NAME: TITI REEDER OPERATIVE REPORT DATE OF : [birth year] REPORT #: [id number] PHYSICIAN: BENTLEY TA MD PCP: NO PRIMARY CARE PHYSICIAN REPORT IS CONFIDENTIAL AND NOT TO BE RELEASED WITHOUT AUTHORIZATION
--- NOTE | 2018-12-03 09:20 | HP ---
[facility] [address] [place], [place] [address] Signed ADMISSION DATE: 12/01/2018 REASON FOR ADMISSION: Acute calculous cholecystitis and distant history of acute pancreatitis. HISTORY: This 23-year-old white woman is accompanied by her significant other with whom she has a 3-month-old (her 2nd child). Child was born on August 20, 2013. She presented at approximately 11:30 last night with severe pain across the upper abdomen 3 hours prior to her arrival. Pain was worse with deep inspiration or movement. She was seen a month ago in the emergency room. At that time, told she had pancreatitis. An ultrasound apparently was performed at that time, which did not show gallstones. Her evaluation last night included a CT scan of the abdomen under the direction of Dr. Guzman, which showed a 1.2 cm calculus impacted in the gallbladder neck. There were multiple stones within the gallbladder as well. The gallbladder wall was mildly thickened with pericholecystic fluid. Pancreas was normal. Review of the report from her ultrasound performed on November 10, 2018, showed no gallstones or sludge. This was interpreted by douglas Davison's radiologist. She was evaluated at that time by Dr. Sifuentes in the emergency room. Technologist was Tiki Rizvi. The patient has been doing reasonably well since her episode of pancreatitis which resolved spontaneously in 48 hours while at home. She was admitted for further evaluation and care and has been given intravenous antibiotics, parenteral pain medication, and IV antibiotics. PAST MEDICAL HISTORY: Includes childbirth x2. She denies any chronic medical problems. MEDICATIONS: She was on no medications at time of admission, previously on Zofran for her pancreatitis issue and limited number of hydrocodone pill. ALLERGIES: She has no known drug allergies. 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 She has two children and she is Electronically Signed By: BENTLEY TA MD 12/03/18 0920 PATIENT NAME: TITI REEDER HISTORY AND PHYSICAL DATE OF : [birth year] REPORT #: [id number] PHYSICIAN: BENTLEY TA MD PCP: NO PRIMARY CARE PHYSICIAN REPORT IS CONFIDENTIAL AND NOT TO BE RELEASED WITHOUT AUTHORIZATION [address] [address] Signed accompanied by her significant other, boyfriend. She lives in [place]. REVIEW OF SYSTEMS: She denies any shortness of breath or chest pain. She had no dysphagia or dysuria. Denies any hematemesis or blood per rectum. Does not have dysphagia. Her pain is mostly in the epigastric and right subcostal area. PHYSICAL EXAMINATION: GENERAL: An obese white woman who does not look to be severely distressed at the moment. HEENT: Mucous membranes reasonably moist. Trachea is midline. She has no carotid bruit. There is no palpable mass of the neck. CHEST: Clear. HEART: Regular. ABDOMEN: Obese but soft. There is tenderness in a subcostal area and the epigastric area, but no mass. She has no overt ascites. EXTREMITIES: Show no clubbing, cyanosis, or edema. LABORATORY STUDIES: Show white count of 8.8, hematocrit 39.1, and platelets 253,000. Chem profile is normal. Creatinine 0.7, bilirubin 0.3, and liver enzymes normal. Lipase 12. Beta hCG negative. Urinalysis was negative. IMAGING STUDY: CT of abdomen and pelvis at 11 p.m. last night showed patchy ground-glass opacities in bilateral lower lobes, representing atelectasis. Mild periportal edema. Liver was normal. Gallbladder with a 1.2 cm impacted gallstone in the neck and gallbladder with multiple layering calculi. A right corpus luteal cyst is noted at 2.1 cm and IUD device is malposition with its stem in the endometrial cavity and one of its armed extending into the myometrium of the right uterine fundus. ASSESSMENT: She has acute cholecystitis with gallstones. No doubt she had passed a stone a month ago, which represented the cause of her acute pancreatitis. It is somewhat remarkable that she had no sign of stones on gallbladder ultrasound at that time. Obesity may have been a contributing factor to that in accuracy of the study. I discussed with them the pathophysiology of the problem and recommendation of treatment to include cholecystectomy preferred by laparoscopic approach. The risks of bleeding, infection, bile duct injury need for open procedure, need for common duct exploration, either laparoscopic or open, and of course failure to cure her symptoms were all reviewed in detail. She understands and wished to proceed. Electronically Signed By: BENTLEY TA MD 12/03/18 0920 PATIENT NAME: TITI REEDER HISTORY AND PHYSICAL DATE OF : [birth year] REPORT #: [id number] PHYSICIAN: BENTLEY TA MD PCP: NO PRIMARY CARE PHYSICIAN REPORT IS CONFIDENTIAL AND NOT TO BE RELEASED WITHOUT AUTHORIZATION [address] [address] Signed Given the acuity of her problem, we will proceed with operation today. She appears to be well resuscitated from fluid perspective and has appropriate medications on board. MD SANKET Gordillo/MODL /[id number] cc: MD Halley Daniel, MD Guille Moncada Copies: YARI OLGUIN MD, KELLY DEAN MD MOLLARD, BRET ~ Electronically Signed By: BENTLEY TA MD 12/03/18 0920 PATIENT NAME: TITI REEDER HISTORY AND PHYSICAL DATE OF : [birth year] REPORT #: [id number] PHYSICIAN: BENTLEY TA MD PCP: NO PRIMARY CARE PHYSICIAN REPORT IS CONFIDENTIAL AND NOT TO BE RELEASED WITHOUT AUTHORIZATION
--- NOTE | 2018-12-03 09:43 | NUR ---
PT RONN ELKINSWAY WITH S.O. AND GRANDMOTHER.
--- NOTE | 2018-12-03 10:06 | NUR ---
BANDAGE REMOVED FROM UMBILICAL LAP SITE THIS AM. PT REPORTS SMALL AMOUNT OF BLEEDING. SITE REINFORCED WITH GAUZE AT THIS TIME. PT INDEPENDENT IN ROOM VISITING WITH FAMILY. CURTAINS OPEN.
--- NOTE | 2018-12-03 10:48 | NUR ---
REFERRAL FOR CHW TO ASSIST PT IN LOCATING A PCP
--- NOTE | 2018-12-03 10:54 | NUR ---
PATIENT IN BED RESTING, BOYFRIEND IN ROOM. WARM BLANKET GIVEN. CALL LIGHT IN REACH. NO FURTHER NEEDS AT THIS TIME.
--- NOTE | 2018-12-03 12:20 | NUR ---
pt reported pain 8/10, two tabs norco po prn given as well as motrin 600mg po prn. pt also given vanilla pudding to prevent gastric upset.
--- NOTE | 2018-12-03 13:30 | NUR ---
PT SITTING UP IN BED VIDEO CHATTING WITH HER DAUGHTER. DENIES NEEDS OR CONCERNS AT THIS TIME. INDEPENDENT IN ROOM. DENIES NAUSEA, DEJA REG DIET.
--- NOTE | 2018-12-03 14:10 | NUR ---
PATIENT IN BED RESTING, BOYFRIEND AND BABY IN ROOM. FRESH WATER GIVEN. CALL LIGHT IN REACH. NO FURTHER NEEDS AT THIS TIME.
--- NOTE | 2018-12-03 15:55 | NUR ---
PT REPORTING 7/10 ABD PAIN. MEDICATED WITH NORCO AND IV TORADOL. NOTED DECREASE IN URINE OUTPUT. RESTARTED IVF AND ENCOURAGED PO INTAKE PT STATES "I HAVE JUST BEEN SLEEPING SO MUCH THAT I FORGET TO DRINK WATER." FRESH ICE WATER AT BEDSIDE. PT LYING IN BED WATCHING A MOVIE ON HER PHONE. CALL LIGHT WITHIN REACH.
[2018-12-03] MEDS ORDERED: HYDROCODON-ACE1 EA10 PO (16:42)
[2018-12-03] MEDS ORDERED: TYLENOL325 MG PO (16:42)
[2018-12-03] MEDS ORDERED: IBUPROFEN600 MG PO (16:42)
--- NOTE | 2018-12-03 17:15 | NUR ---
Medications reconciled
== END 2018-12-03 17:58 | disposition home or self-care (01) ==
LOC: ED 21:28 → MS 21:30
PROVIDERS: ADMIT Surgery
PROC: BF101ZZ Fluoroscopy of Bile Ducts using Low Osmolar Contrast (ICD-10-PCS; 2018-12-02)
PROC: 0FT44ZZ Resection of Gallbladder, Percutaneous Endoscopic Approach (ICD-10-PCS; principal; 2018-12-02 14:10)
DX: K80.12 Calculus of gallbladder with acute and chronic cholecystitis without obstruction (principal); E66.9 Obesity, unspecified; F17.210 Nicotine dependence, cigarettes, uncomplicated; Z68.41 Body mass index [BMI] 40.0-44.9, adult
CPT/HCPCS: 00790; 74177; 74300; 80053; 81001; 83690; 84703; 85025; 96361; 96372; 96375; 96376; 99285-25; G0378; J0131; J0330; J0690; J1100; J1170; J1644; J1885; J2250; J2270; J2300; J2405; J2704; J3475; J7030; J7120; Q9967

== ENCOUNTER 2019-11-24 19:43 | Emergency (ER) | payer OTHER ==
[~2019-11-24] VITALS: Ht 162.6 cm; Wt 97.5 kg
--- OUTSIDE RECORDS SUMMARY | ~2019-11-24 | XMS | Encounter Summary ---
Demographics + + + | Address | [address] | | | [place] [address] | + + + | Home Phone | | + + + | Preferred Language | Unknown | + + + | Marital Status | Single | + + + | Yarsanism Affiliation | Unknown | + + + | Race | Unknown | + + + | Ethnic Group | Unknown | + + + Author + + + | Author | [facility] | | | and [place] | + + + | Organization | [facility] | | | and [place] | + + + | Address | Unknown | + + + | Phone | Unavailable | + + + Support + + +---------+ + | Name | Relationship | Address | Phone | + + +---------+ + | Per Pt None | ECON | Unknown | | + + +---------+ + Care Team Providers + +------+ + | Care Clinical Laboratory Aide Name | Role | Phone | + +------+ + | No, Physician | PCP | Unavailable | + +------+ + Reason for Visit + + + | Reason | Comments | + + + | Pelvic Pain | | + + + Encounter Details +--------+ + + + + | Date | Type | Department | Care Team | Description | +--------+ + + + + | 12/11/ | Emergency | [facility] | E[place]ias, | Abdominal pain, | | 2018 | | [facility] | MD [address] | unspecified | | | | CENTER [address] | [address] | abdominal location | | | | [place], [place] | [place] [address] | (Primary Dx); | | | | [address] | [phone] | , | | | | [phone] | | unspecified | | | | | | gestational age | +--------+ + + + + Social History + +-------+ +--------+------+ | Tobacco Use | Types | Packs/Day | Years | Date | | | | | Used | | + +-------+ +--------+------+ | Never Assessed | | | | | + +-------+ +--------+------+ + + + | Sex Assigned at | Date Recorded | | | | + + + | Not on file | | + + + + + + + | Job Start Date | Occupation | Industry | + + + + | Not on file | Not on file | Not on file | + + + + + + + + | Travel History | Travel Start | Travel End | + + + + + + | No recent travel history available. | + + documented as of this encounter Last Filed Vital Signs + + + + + | Vital Sign | Reading | Time Taken | Comments | + + + + + | Blood Pressure | 124/73 | 12/11/2017 12:36 PM | | | | | PDT | | + + + + + | Pulse | 86 | 12/11/2017 12:36 PM | | | | | PDT | | + + + + + | Temperature | 37.4 C (99.3 F) | 12/11/2017 11:38 AM | | | | | PDT | | + + + + + | Respiratory Rate | 12 | 12/11/2017 12:36 PM | | | | | PDT | | + + + + + | Oxygen Saturation | 96% | 12/11/2017 12:36 PM | | | | | PDT | | + + + + + | Inhaled Oxygen | - | - | | | Concentration | | | | + + + + + | Weight | 81.6 kg (180 lb) | 12/11/2017 11:38 AM | | | | | PDT | | + + + + + | Height | 162.6 cm (5' 4") | 12/11/2017 11:38 AM | | | | | PDT | | + + + + + | Body Mass Index | 30.9 | 12/11/2017 11:38 AM | | | | | PDT | | + + + + + documented in this encounter Discharge Instructions Instructions Matthias Monson MD - 12/11/2017Please follow-up with Dr. Espinoza as planne d. Return for any other concerns. Thank you for visiting [facility] Emergency Department. Please follow up with your primary care provider in the next 1-3 days unless otherwise spec ified. If you review your results on "My Charts" and there happens to be any concerns or abnormali ties that you have a question about, please follow up with your primary care provider to dis cuss these results. Please read all informational handouts and medication instructions, if provided. Please be aware that although we feel you are safe for discharge at this time, disease proc esses are dynamic and your condition may change. If you have any significant concerns about your condition that you fear may be emergent in nature, please return for re-evaluation. Changes in the disease process may allow certain conditions to be detected at a different t devan. You would not be released today if there was evidence of an emergent medical or surgica l condition that would benefit from admission to the hospital or emergent surgery. Although this emergency department is staffed with highly trained physicians that are board certified in emergency medicine, unfortunately not all significant problems are detectable during the time of evaluation. This is why it is important for you to return if significantly concerne d, or otherwise follow up with your primary care provider for re-evaluation. documented in this encounter Plan of Treatment Not on filedocumented as of this encounter Procedures + +--------+ + + + | Procedure Name | Priori | Date/Time | Associated Diagnosis | Comments | | | ty | | | | + +--------+ + + + | IMAGING REPORT - | | 12/08/2017 | | Results for this | | EXTERNAL SCAN | | 12:00 AM | | procedure are in the | | | | PDT | | results section. | + +--------+ + + + | IMAGING REPORT - | | 12/08/2017 | | Results for this | | EXTERNAL SCAN | | 12:00 AM | | procedure are in the | | | | PDT | | results section. | + +--------+ + + + | LABS - EXTERNAL SCAN | | 12/08/2017 | | Results for this | | | | 12:00 AM | | procedure are in the | | | | PDT | | results section. | + +--------+ + + + documented in this encounter Results LABS - EXTERNAL SCAN (12/08/2017 12:00 AM PDT) + + + | Narrative | Performed At | + + + | Ordered by an | | | unspecified provider. | | + + + IMAGING REPORT - EXTERNAL SCAN (12/08/2017 12:00 AM PDT) + + + | Narrative | Performed At | + + + | Ordered by an | | | unspecified provider. | | + + + IMAGING REPORT - EXTERNAL SCAN (12/08/2017 12:00 AM PDT) + + + | Narrative | Performed At | + + + | Ordered by an | | | unspecified provider. | | + + + documented in this encounter Visit Diagnoses + + | Diagnosis | + + | Abdominal pain, unspecified abdominal location - Primary | + + | , unspecified gestational age | + + documented in this encounter
--- OUTSIDE RECORDS SUMMARY | ~2019-11-24 | XMS | Encounter Summary ---
Demographics + + + | Address | [address] | | | [place] [address] | + + + | Home Phone | | + + + | Preferred Language | Unknown | + + + | Marital Status | Single | + + + | Restorationism Affiliation | Unknown | + + + | Race | Unknown | + + + | Ethnic Group | Unknown | + + + Author + + + | Author | [facility] | | | and [place] | + + + | Organization | [facility] | | | and [place] [...] Team Providers + +------+ + | Care Workers Compensation Attorney Name | Role | Phone | + [...] + + | 12/11/ | Emergency | [facility] | [place], | Abdominal pain, | | 2018 | | [facility] | [address] | unspecified | | | | CENTER [address] | [address] | abdominal location | | | | [place], [place] | [place] [address] | (Primary Dx); | | | | [address] | [phone] | , | | | | [phone] | | unspecified | | | | [...] any other concerns. Thank you for visiting [facility] Emergency Department. Please follow up with your [...]
--- OUTSIDE RECORDS SUMMARY | ~2019-11-24 | XMS | Clinical Summary ---
Demographics + + + | Address | [address] | | | [place] [address] | + + + | Home Phone | | + + + | Preferred Language | Unknown | + + + | Marital Status | Single | + + + | Restorationist Affiliation | Unknown | + + + | Race | Unknown | + + + | Ethnic Group | Unknown | + + + Author + + + | Author | [facility] | | | and [place] | + + + | Organization | [facility] | | | and [place] | [...] Team Providers + +------+ + | Care Outside B2B Sales Name | Role | Phone | + +------+ + | No, Physician | PCP | Unavailable | + +------+ + Allergies [...] | | + + + + + Plan of Treatment + + + + + | Health Maintenance | Due Date | Last Done | Comments | + + + + + | Vaccine: | | | | | Dtap/Tdap/Td (1 - | 8 | | | | Tdap) | | | | + + + + + | Cervical Cancer | | | | | Screening (Pap) | 8 | | | + + + + + | Vaccine: Influenza | | | | | (Season Ended) | 0 | | | + + [...] +---------+--------+ | [facility] | PHP | [phone] | 07/31/19 | [phone] | | PPO | | PLAN | PEBB | | 18-Pre | 5 | | | | | STATEW | | sent | | | | | | [place] | | | | | | + +--------+ +--------+ +---------+--------+ | [employer] | MODA | [id number] | | [phone] | | Medica | | MEDICAID HMO [...] Self | [birth year] | [address] | | | al/Fam | | 1995 | [phone] | [place] [address] | | | tobi | | | 8 (Home) | | + +--------+ +--------+ + + Advance Directives + + + + + | Type | Date Recorded | Patient | Explanation | | | | Transition Specialist | | + + + + + | Power of | | | | | Farm Loan Inspector | | | | + + + + + | Advance | 12/11/2017 4:48 | | | | Directive | PM | | | + + + + +
--- OUTSIDE RECORDS SUMMARY | ~2019-11-24 | XMS | Clinical Summary ---
Demographics + + + | Address | [address] | | | [place] [address] | + + + | Home Phone | | + + + | Preferred Language | Unknown | + + + | Marital Status | Single | + + + | Jewish Affiliation | Unknown | + + + | Race | Unknown | + + + | Ethnic Group | Unknown | + + + Author + + + | Author | [facility] | | | and [place] | + + + | Organization | [facility] | | | and [place] [...] Team Providers + +------+ + | Care Shipping Receiving Manager Name | Role | Phone | + [...] +---------+--------+ | [facility] | PHP | [phone] | 07/31/19 | [phone] | | PPO | | PLAN | PEBB | | 18-Pre | 5 | | | | | STATEW | | sent | | | | | | [place] | | | | | | + +--------+ +--------+ +---------+--------+ | [employer] | MODA | [id number] | | [phone] | | Medica | | MEDICAID HMO [...] Self | [birth year] | [address] | | | al/Fam | | 1995 | [phone] | [place] [address] | | | tobi | | | 8 (Home) | | + +--------+ +--------+ + + Advance Directives + + + + + | Type | Date Recorded | Patient | Explanation | | | | Data Warehousing Manager | | + + + + + | Power of | | | | | Civil Litigation Attorney | | | | + + + + + | Advance | 12/11/2017 4:48 | | | | Directive | PM | | | + + + + +
[~2019-11-24 19:43] MED LIST changes: +HYDROCODON-ACE1 EA10 PO; +IBUPROFEN600 MG PO; +TYLENOL325 MG PO
--- OUTSIDE RECORDS SUMMARY | 2019-11-24 19:46 | XMS ---
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 Eric has no Care Guidelines for this patient. Janessa VISIT COUNT (12 MO.) 2 [facility] TOTAL 2 NOTE: Visits indicate total known visits. ED/C VISIT TRACKING (12 MO.) 11/24/2019 19:44 [facility] [place] TYPE: Emergency COMPLAINT: - SKIN ISSUE 12/01/2018 21:29 [facility] [place] TYPE: Emergency COMPLAINT: - DIFFICULTY BREATHING INPATIENT VISIT TRACKING (12 MO.) 12/01/2018 21:30 [facility] [place] TYPE: Observation COMPLAINT: - CHOLYCYSITIS DIAGNOSES: - Nicotine dependence, cigarettes, uncomplicated - Calculus of gallbladder with acute cholecystitis without obst - Body mass index (BMI) 40.0-44.9, adult - Upper abdominal pain, unspecified - Obesity, unspecified - Nicotine dependence, unspecified, uncomplicated - Nausea with vomiting, unspecified - Calculus of gallbladder with acute and chronic cholecystitis [email or web address]
[2019-11-24] MEDS ORDERED: BACTRIM DS TAB1 EACH PO (20:13)
[2019-11-24] MEDS ORDERED: KEFLEX500 MG PO (20:13)
== END 2019-11-24 20:20 | disposition home or self-care (01) ==
LOC: ED 19:43
DX: N76.2 Acute vulvitis (principal); F17.200 Nicotine dependence, unspecified, uncomplicated
CPT/HCPCS: 99283; A9270

== ENCOUNTER 2021-05-23 15:18 | Emergency (ER) | payer OTHER, MEDICAID ==
[~2021-05-23] VITALS: Ht 162.6 cm; Wt 78.0 kg
[~2021-05-23 15:18] MED LIST changes: +BACTRIM DS TAB1 EACH PO
--- OUTSIDE RECORDS SUMMARY | 2021-05-23 15:26 | XMS ---
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 Eric has no Care Guidelines for this patient. Janessa VISIT COUNT (12 MO.) 1 [facility] TOTAL 1 NOTE: Visits indicate total known visits. ED/C VISIT TRACKING (12 MO.) 05/23/2021 15:18 [facility] [place] TYPE: Emergency COMPLAINT: - DOG BITE INPATIENT VISIT TRACKING (12 MO.) No inpatient visits to display in this time frame [email or web address]
== END 2021-05-23 16:14 | disposition left against medical advice (07) ==
LOC: ED 15:18
DX: S81.851A Open bite, right lower leg, initial encounter (principal); F17.200 Nicotine dependence, unspecified, uncomplicated; W54.0XXA Bitten by dog, initial encounter
CPT/HCPCS: 99283

== ENCOUNTER 2021-09-04 17:07 | Emergency (ER) | payer OTHER ==
[~2021-09-04] VITALS: Ht 162.6 cm; Wt 78.2 kg
--- OUTSIDE RECORDS SUMMARY | 2021-09-04 17:10 | XMS ---
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 Eric has no Care Guidelines for this patient. EMarie VISIT COUNT (12 MO[address] [facility] TOTAL 2 NOTE: Visits indicate total known visits. ED/C VISIT TRACKING (12 MO.) 09/04/2021 17:08 [facility] [place] TYPE: Emergency COMPLAINT: - ABDOM PAIN LOWER 05/23/2021 15:18 [facility] [place] TYPE: Emergency COMPLAINT: - DOG BITE DIAGNOSES: - Open bite, right lower leg, initial encounter - Nicotine dependence, unspecified, uncomplicated - Bitten by dog, initial encounter INPATIENT VISIT TRACKING (12 MO.) No inpatient visits to display in this time frame [email or web address]
== END 2021-09-04 21:57 | disposition left against medical advice (07) ==
LOC: ED 17:07
DX: T83.32XA Displacement of intrauterine contraceptive device, initial encounter (principal); F17.200 Nicotine dependence, unspecified, uncomplicated
CPT/HCPCS: 36415; 74177; 80053; 81001; 84703; 85025; 96375; 99284-25; J2270; J2405; J7030; Q9967

== ENCOUNTER 2022-06-27 15:07 | Inpatient (IN) | payer OTHER ==
[~2022-06-27] VITALS: Ht 158.8 cm; Wt 97.5 kg
--- NOTE | ~2022-06-27 | OR ---
[facility] [address] [place], [place] [address] Draft DATE OF OPERATION: SURGEON: Jenae Ivey DO PROCEDURE: Primary delivery, supracervical hysterectomy, bilateral salpingectomy. PREOPERATIVE DIAGNOSES: 1. intolerance to labor. 2. Gestational hypertension. 3. Multiparity. 4. Maternal obesity. POSTOPERATIVE DIAGNOSES: 1. Term , delivered. 2. Placental abruption. 3. Placenta accreta. 4. Intrapartum hemorrhage. 5. Gestational hypertension. 6. Maternal obesity. REPTILE FARMER: Amador Anderson DO ANESTHESIA: Epidural. BLOOD LOSS: 1200 mL. COMPLICATIONS: Hemorrhage. SPECIMEN: Placenta, uterus with bilateral tubes. INDICATION: The patient is a 27-year-old G4, P3, who was admitted directly to the Birthing Center for medical induction of labor for gestational hypertension. She received Cytotec x2. Amniotomy was performed yielding a moderate amount of clear fluid and contractions became more intense. The patient received an epidural for pain management and continued PATIENT NAME: TITI REEDER OPERATIVE REPORT DATE OF : [birth year] REPORT #: [id number] PHYSICIAN: JENAE IVEY DO PCP: NO PRIMARY CARE PHYSICIAN REPORT IS CONFIDENTIAL AND NOT TO BE RELEASED WITHOUT AUTHORIZATION [address] [address] [place] to progress. having variable decelerations with contractions, which worsened and became deeper and were not responsive to maternal repositioning, fluid resuscitation and no palpable cord was noted. Terbutaline was administered with slight temporary improvement in heart tones. The patient was emergently consented for delivery. The patient was taken to the operating room. PROCEDURE IN DETAIL: The patient was taken to the operating room, where epidural was bolused by Anesthesia. She was prepped and draped in normal sterile fashion. 2 g Ancef was administered followed by 500 mg of azithromycin and she was positioned in dorsal lithotomy with leftward tilt. Adequate anesthesia was confirmed. A Pfannenstiel incision was made with a scalpel and carried down to underlying layer of fascia. Fascia was nicked in midline and extended laterally with Saldivar scissors. Underlying rectus muscle was dissected off bluntly and sharply with Saldivar scissors and peritoneum was entered bluntly. Regulo retractor was placed without difficulty and hysterotomy was made with a scalpel. Upon blunt digital entry into the uterine cavity, copious blood clots were noted. head was engaged in the pelvis and despite repeated attempts by both surgeon and 1st assist head could not easily be elevated. Hysterotomy incision was extended at the left apex and a J-incision with bandage scissors, allowing hips to be delivered and baby to be delivered breech maneuvers. A nuchal cord was reduced. Cord was immediately clamped and cut and baby was handed to waiting nursery team for further resuscitation. Cord blood was collected for type and Katerine. Segment of cord was doubly clamped and cut for cord gases. Placenta was noted to be adherent posteriorly and upon closer inspection was partially while a large component removed morbidly adherent. Significant bleeding was noted at the site of attachment. Uterus is manually inverted for closer inspection which revealed consistent findings as previously noted, morbidly adherent placenta with significant bleeding along the posterior wall. Inversion was reduced without difficulty. Placenta was doubly clamped and cut. The patient was emergently consented for hysterectomy. was initiated 1 g IV. Massive transfusion protocol was initiated including 2 units of packed red blood cells. Hysterectomy tray was brought in and opened. Right utero-ovarian ligament was doubly clamped with curved Fredis's and cut with Saldivar scissors, both which were used for the remainder of the case except as otherwise noted. An ovarian pedicle was suture ligated with 0 Vicryl, which was also used for the remainder of the case except as otherwise noted. Round ligament was next doubly clamped and cut, and suture ligated and the broad ligament was developed inferiorly down to the level of the cardinal ligaments, which were also doubly clamped, cut, and suture-ligated with resulting hemostasis. Attention was then turned to the left, where utero-ovarian ligament was doubly clamped and cut, and suture ligated followed by the round ligament down to the level of the cardinal ligaments. Uterine vessels were clamped, cut and suture ligated bilaterally allowing for development of the bladder flap. At this point, cervix was palpable and low in the pelvis and decision was made to amputate supracervically. Curved Fredis's PATIENT NAME: TITI REEDER OPERATIVE REPORT DATE OF : [birth year] REPORT #: [id number] PHYSICIAN: JENAE IVEY DO PCP: NO PRIMARY CARE PHYSICIAN REPORT IS CONFIDENTIAL AND NOT TO BE RELEASED WITHOUT AUTHORIZATION [facility] [address] [place], [place] [address] Draft were used to transect the uterus just above the level of the cervix which was then amputated with Saldivar scissors. Anterior posterior lower uterine segments were suture ligated at midline in a [id number]-jn-qogzp fashion with 0 Vicryl followed by bilateral stitches of 0 Vicryl in a simple interrupted fashion at either apex and [id number]-pq-ebcts stitches between apex and midline as needed to achieve hemostasis. Perforating vessels within the pelvis were cauterized with Bovie cautery after careful palpation of bilateral ureters, which were noted to be removed from the operative field posteriorly and inferiorly. Pelvis was copiously suction irrigated with warm sterile saline. Tisseel was applied in the pelvis. Bilateral salpingectomy was performed by clamping the mesosalpinx with a curved Fredis, suture ligating the ovarian pedicle and tubes were submitted to pathology along with the uterus. Pelvis was again copiously suction and irrigated with warm sterile saline. No further perforating vessels were noted. Sponges were removed. Peritoneum was closed with 2-0 Vicryl in a running fashion. Rectus muscle reapproximated in midline with 0 Vicryl in a simple interrupted fashion. The fascia was closed at midline working 1st from right apex to midline in a running fashion with 0 Vicryl; secondly from left apex to midline with 0 Vicryl in a running fashion, meeting at midline. Subcutaneous layer was inspected for perforating vessels, which were cauterized with Bovie cautery and subcutaneous layer was reapproximated with 3-0 Vicryl in a running fashion. Skin was closed with skin clips. The patient remained in the OR for placement of TAP blocks per Anesthesia and continued monitoring. Coags were repeated immediately postop with plan to repeat again 6 hours postop, but at the completion of the case, the patient was hemodynamically stable. DO BILLY Chowdhury/MODL /[id number] Copies: ~ PATIENT NAME: TITI REEDER OPERATIVE REPORT DATE OF : [birth year] REPORT #: [id number] PHYSICIAN: JENAE IVEY DO PCP: NO PRIMARY CARE PHYSICIAN REPORT IS CONFIDENTIAL AND NOT TO BE RELEASED WITHOUT AUTHORIZATION
--- NOTE | 2022-06-27 16:32 | NUR ---
both nares swabbed for covid-19 without complication.
--- NOTE | 2022-06-27 22:18 | PR ---
[facility] [address] [facility] [address] [facility] [address] [place], [place] [address] Signed Progress Notes IP Datetime Report Generated by CPN: 06/27/2022 22:18 PROGRESS NOTES: [id number] Impression: Normal Progression of Labor; Reassuring Heart Rate Procedures: Artificial ROM Plan: Continue Present Management VITAL SIGNS: [id number] Vital Signs: Reviewed VS Notable Details: mildly elevated, no severe range BP EXAM: [id number] Dilatation: 2.0 Effacement: 75 Station: -3 Contractions: q3-7 min MEMBRANES: [id number] Membranes Status: Ruptured Amniotic Fluid Color: Clear Comments: Comfortable with epidural, s/p cytotec x 2 AROM lg amount clear fluid FETUS A: [id number] FHR Baseline: 125 Variability: Moderate 6-25bpm Accelerations: 15X15 Decelerations: None FHR Category: Category I Presentation: Vertex Comments on Fetus A: no evidence of acidemia FETUS B: [id number] Signing Physician: Jenae Ivey DO Copies: ~ *Electronically Signed* 06/27/22 2218 JENAE IVEY DO PATIENT NAME: TITI REEDER PROGRESS NOTE DATE OF : [birth year] PHYSICIAN: JENAE IVEY DO RPT #: [id number] REPORT IS CONFIDENTIAL AND NOT TO BE RELEASED WITHOUT AUTHORIZATION
--- NOTE | 2022-06-27 23:34 | PR ---
[facility] [address] [facility] [place], [place] [address] Signed Progress Notes IP Datetime Report Generated by CPN: 06/27/2022 23:33 PROGRESS NOTES: [id number] Impression: Normal Progression of Labor Procedures: Intrauterine Pressure Catheter; Scalp Electrode; Sterile Vag Exam Plan: Continue Present Management VITAL SIGNS: [id number] Vital Signs: Reviewed VS Notable Details: mildly elevated, no severe range BP EXAM: [id number] Dilatation: 3.0 Effacement: 75 Station: -2 Contractions: q3-7 min MEMBRANES: [id number] Membranes Status: Ruptured Amniotic Fluid Color: Clear Comments: Difficulty tracing contractions/ FHR - internals discussed with pt and placed without difficulty with her consent FETUS A: [id number] FHR Baseline: 125 Variability: Moderate 6-25bpm Accelerations: 15X15 Decelerations: None FHR Category: Category I Presentation: Vertex Comments on Fetus A: no evidence of acidemia FETUS B: [id number] Signing Physician: Jenae Ivey DO Copies: ~ *Electronically Signed* 06/27/22 2333 JENAE IVEY DO PATIENT NAME: TITI REEDER PROGRESS NOTE DATE OF : [birth year] PHYSICIAN: JENAE IVEY DO RPT #: [id number] REPORT IS CONFIDENTIAL AND NOT TO BE RELEASED WITHOUT AUTHORIZATION
--- NOTE | 2022-06-28 02:45 | NUR ---
06/28/22 0245 Deborah Castillo 0225-PATIENT BACK TO ROOM 101 ON RA. PATIENT IS ASLEEP ON ARRIVAL TO ROOM. RESP EVEN AND UNLABORED. PATIENT HAS IV SITES IN BOTH HANDS, BOTH WNL. 0230-PATIENT OPENS EYES. RESP EVEN AND UNLABORED. DENIES PAIN AND NAUSEA.
--- NOTE | 2022-06-29 17:52 | PR ---
[facility] [address] [place], [place] [address] Signed PP Progress Notes Datetime Report Generated by CPN: 06/29/2022 17:52 SUBJECTIVE: [id number] Pain: Within Normal Limits Nausea/Vomiting: Denies Flatus: Yes Bowel Movement: No Vital Signs: [id number] Vital Signs: Reviewed; Within Normal Limits EXAM: Ongoing Cardiovascular: Normal Respiratory: Normal Abdomen/Uterus: Normal Lochia: Normal Vulva/Perineum: Not Done CVA Tenderness: Normal Extremities: Normal Incision: Normal Progress: Normal Exam Comments: Incision well healing; khurram in place. IMPRESSION/PLAN/PROCEDURES: [id number] Impression: Normal Progression Plan: Continue Present Management Progress Notes: Pt seen and examined. Doing well. Ambulating, voiding, and tolerating full diet. Some flatus but c/o some bloating. Recommended chewing gum. No fevers/chills. No lightheadedness/dizziness. well. No other concerns. Reviewed delivery and hysterectomy in detail. Discussed supracervical hysterectomy and possible resumption of menses. All questions answered. Anticipate d/c home tomorriow Signing Physician: Parth Anderson DO Copies: ~ *Electronically Signed* 06/29/22 6196 PARTH ANDERSON (HORTENCIA) DO PATIENT NAME: TITI REEDER PROGRESS NOTE DATE OF : 97 PHYSICIAN: PARTH ANDERSON (JD) DO RPT #: [id number] REPORT IS CONFIDENTIAL AND NOT TO BE RELEASED WITHOUT AUTHORIZATION
--- NOTE | 2022-06-30 12:54 | PATH ---
[facility] [address], [place] [address] Signed SPECIMEN(S): A BILATERAL FALLOPIAN TUBES SPECIMEN(S): B PLACENTA SPECIMEN(S): C UTERUS SPECIMEN SOURCE: A. BILATERAL FALLOPIAN TUBES B. PLACENTA C. UTERUS CLINICAL HISTORY: Pre: Code 4 non-reassuring FHT. Post: Placenta accreta, abruption, hysterectomy. FINAL PATHOLOGIC DIAGNOSIS: A. Bilateral fallopian tubes: - Two segments of benign oviduct. B. Placenta: - 308 gm placenta with three-vessel umbilical cord. - Negative for significant chorioamnionitis or funisitis. - Patchy, focal partial-thickness placental disc infarction. - Focal villous and perivillous fibrin deposition and calcification. - See comment. C. Uterus, hysterectomy: - Uterus with adherent placental fragments with features of placenta increta. COMMENT: The clinical diagnosis of placental abruption is noted. While the histologic findings are certainly compatible, this diagnosis should primarily be made clinically. The additional findings of focal Placenta increta are also noted. JVR:kuldeep:C2NR MICROSCOPIC EXAMINATION: Histologic sections of all submitted blocks are examined by light microscopy. These findings, together with the gross examination, support the pathologic diagnosis. GROSS DESCRIPTION: A. The specimen, labeled and designated "Donny, bilateral fallopian tubes," is received in formalin and consists of 2 segments of aleman-purple fallopian tubes. The first segment measures 4.0 by up to PATIENT NAME: TITI REEDER PATHOLOGY DATE OF : [birth year] REPORT #: [id number] PHYSICIAN: TENISHA PATHOLOGY PCP: NO PRIMARY CARE PHYSICIAN REPORT IS CONFIDENTIAL AND NOT TO BE RELEASED WITHOUT AUTHORIZATION [facility] [address], [place] [address] Signed 0.8 cm. One end is fimbriated. The segment is serially sectioned. The second segment measures 3.5 by up to 1.0 cm. The segment is inked blue and easily sectioned. Dope Pourer sections are submitted as follows: H5chbjo segment, A9cyyrbk segment (A1-A2). B. The specimen, labeled and designated "Donny placenta," is received fresh and placed in formalin and consists of king discoid placenta with the following parameters: Umbilical cord: Insertion eccentric, measurement 16.2 by up to 1.5 cm; trivascular. Cord coiling index (per 10 cm): 1.5. Lesions: No gross identified. Membranes: Insertion site: Marginal, aleman/translucent. Partially attached. Other: Not grossly identified. Chorionic Plate: Normal radiating vascular pattern, blue-purple and shiny. Lesions: Not grossly identified. Other: Not grossly identified. Maternal Surface: Normal cotyledons, intact. Lesions: Not grossly identified. Measurement: 19.0 x 15.3 x 3.2 cm. 308 g Cut Surface: Maroon and spongy. Lesions: Areas of infarct and hemorrhage. Basal plate fibrin 0.1 cm in thickness. Other Findings: Not grossly identified. Dope Pourer sections are submitted Cassette Summary: (B1) membranes and umbilical cord (B2) placenta parenchyma (B3) placenta parenchyma (B4) placenta parenchyma C. The specimen, labeled and designated "Donny, uterus," is received in formalin and consists of a uterus minus the cervix. The uterus weighs 795 g and measures 13.5 x 13.5 x 7.8 cm. Upon opening the uterus, the endometrial lining has a roughened gilmore and red-aleman appearance. Uterine wall measures up to 4.0 cm in greatest thickness. Dope Pourer sections are submitted as follows: C1-U6zpmbxghp endometrium, C3-F0jwzvibbhl endometrium, P5gdmrnyqoqk endometrium (C1-C5). HH (under the direct supervision of a pathologist) 06/29/2022 The Gross Description was prepared using a voice recognition system. The report was reviewed for accuracy; however, sound-alike word errors, addition and/or deletions may occur. If there is any question about this report, please contact Client Services. PERFORMING LABORATORY: PATIENT NAME: TITI REEDER PATHOLOGY DATE OF : [birth year] REPORT #: [id number] PHYSICIAN: JENNIFERBVG [place] CATHRYN PCP: NO PRIMARY CARE PHYSICIAN REPORT IS CONFIDENTIAL AND NOT TO BE RELEASED WITHOUT AUTHORIZATION [facility] [address] [place] [id number] Signed The technical component was performed by [facility], [address] [place] [id number] (CLIA# [id number]). Professional interpretation was performed by [facility], [address] [place] [phone] (CLIA#: [id number]). Diagnostician: Mainor Leonardo MD Pathologist Electronically Signed 06/30/2022 Copies: ~ PATIENT NAME: TITI REEDER PATHOLOGY DATE OF : [birth year] REPORT #: [id number] PHYSICIAN: TENISHA LOCKETT PCP: NO PRIMARY CARE PHYSICIAN REPORT IS CONFIDENTIAL AND NOT TO BE RELEASED WITHOUT AUTHORIZATION
--- NOTE | 2022-06-30 14:35 | PR ---
[facility] [address], [place] [address] Signed PP Progress Notes Datetime Report Generated by CPN: 06/30/2022 14:35 SUBJECTIVE: [id number] Pain: Within Normal Limits Nausea/Vomiting: Denies Flatus: Yes Bowel Movement: No Vital Signs: [id number] Vital Signs: Reviewed; Within Normal Limits Notable Details: mildly elevated BP , no severe BP EXAM: Ongoing Cardiovascular: Normal Respiratory: Normal Abdomen/Uterus: Normal Lochia: Normal Vulva/Perineum: Not Done CVA Tenderness: Normal Extremities: Normal Incision: Normal Progress: Normal Exam Comments: Incision: c/d/i IMPRESSION/PLAN/PROCEDURES: [id number] Impression: Normal Progression Plan: Continue Present Management; Discharge Progress Notes: POD#2 s/p PLTCS complicated by J incision and hysterectomy (supracervical) for placenta accreta -s/p 2 units PRBC intraoperative, hgb stable postop -MIOL initially for gHTN, BP mildly elevated but not severe, PreE labs normal on admission -Pt insisting on DC to home, agrees to follow-up on Monday for staple removal/ BP check Signing Physician: Jenae Ivey DO Copies: ~ *Electronically Signed* 06/30/22 3305 JENAE IVEY DO PATIENT NAME: TITI REEDER PROGRESS NOTE DATE OF : [birth year] PHYSICIAN: JENAE IVEY DO RPT #: [id number] REPORT IS CONFIDENTIAL AND NOT TO BE RELEASED WITHOUT AUTHORIZATION
== END 2022-06-30 15:00 | disposition home or self-care (01) | DRG 785 ==
LOC: FBC 15:07
PROVIDERS: ADMIT Obstetrics & Gynecology; ATTEND Obstetrics & Gynecology
PROC: 0UB70ZZ Excision of Bilateral Fallopian Tubes, Open Approach (ICD-10-PCS; 2022-06-28)
PROC: 30233N1 Transfusion of Nonautologous Red Blood Cells into Peripheral Vein, Percutaneous Approach (ICD-10-PCS; 2022-06-28)
PROC: 10D00Z1 Extraction of Products of Conception, Low, Open Approach (ICD-10-PCS; principal; 2022-06-28 00:57)
DX: O13.4 Gestational [pregnancy-induced] hypertension without significant proteinuria, complicating childbirth (principal); Z3A.00 Weeks of gestation of pregnancy not specified; Z37.0 Single live birth; O99.214 Obesity complicating childbirth; E66.01 Morbid (severe) obesity due to excess calories; O76 Abnormality in fetal heart rate and rhythm complicating labor and delivery; Z30.2 Encounter for sterilization; Z20.822 Contact with and (suspected) exposure to COVID-19; O44.13 Complete placenta previa with hemorrhage, third trimester; O99.334 Smoking (tobacco) complicating childbirth; F17.210 Nicotine dependence, cigarettes, uncomplicated; O99.344 Other mental disorders complicating childbirth; F31.9 Bipolar disorder, unspecified; Z90.49 Acquired absence of other specified parts of digestive tract
CPT/HCPCS: 01961; 36415; 36430; 76942; 80053; 82565; 82570; 82803; 83615; 84156; 84550; 85027; 85384; 85610; 85730; 86850; 86900; 86901; 86922; 87502; 88302; 88307; A9270; C9803; J0456; J0690; J1650; J1885; J2250; J2274; J2370; J2795; J7040; J7060; J7121; P9016; U0003

== ENCOUNTER 2022-09-23 18:55 | Emergency (ER) | payer OTHER ==
[~2022-09-23] VITALS: Ht 160 cm; Wt 97.7 kg
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
[2022-09-23] MEDS ORDERED: NORETHINDRONE0.35 MG PO (20:16)
[2022-09-23] MEDS ORDERED: VISTARIL25 MG PO (20:35)
[2022-09-23] MEDS ORDERED: CELEXA20 MG PO (20:36)
[2022-09-24] MEDS ORDERED: VISTARIL25 MG PO (06:58)
[2022-09-24] MEDS ORDERED: CELEXA20 MG PO (06:58)
== END 2022-09-23 21:00 | disposition home or self-care (01) ==
LOC: ED 18:55
DX: O99.345 Other mental disorders complicating the puerperium (principal); F53.0 Postpartum depression; O99.335 Smoking (tobacco) complicating the puerperium; F17.200 Nicotine dependence, unspecified, uncomplicated; Z91.018 Allergy to other foods; Z79.899 Other long term (current) drug therapy
CPT/HCPCS: 99283

== ENCOUNTER 2023-07-29 15:34 | Emergency (ER) | payer OTHER ==
[~2023-07-29] VITALS: Ht 160 cm; Wt 93.2 kg
[~2023-07-29 15:34] MED LIST changes: +CELEXA20 MG PO; +NORETHINDRONE0.35 MG PO; +VISTARIL25 MG PO
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
[2023-07-29] MEDS ORDERED: AMOXICILLIN500 MG PO (15:50)
[2023-07-29] MEDS ORDERED: HYDROCODON-ACE1 EA11 PO (17:49)
[2023-07-29 17:56] VITALS: BP 120/85
== END 2023-07-29 17:56 | disposition home or self-care (01) ==
LOC: ED 15:34
DX: S62.627A Displaced fracture of middle phalanx of left little finger, initial encounter for closed fracture (principal); F17.200 Nicotine dependence, unspecified, uncomplicated; V86.55XA Driver of 3- or 4- wheeled all-terrain vehicle (ATV) injured in nontraffic accident, initial encounter; Z91.018 Allergy to other foods; Z79.899 Other long term (current) drug therapy
CPT/HCPCS: 73080; 73090; 73130; 99284-25; A9270